=== PATIENT | male | born 1985 | race Caucasian/White ===

== ENCOUNTER → 2016-09-05 09:53 | Outpatient (CLI) | payer MEDICARE ==
[2016-09-05 10:50] LABS: BASOPHILS 0.3 % (0.0-2.0); EOSINOPHILS 4.2 % (0-7); HEMATOCRIT 41.3 % (42.0-54.0); IMMATURE GRANULOCYTES 0.3 % (0-5); LYMPHOCYTES 25.7 % (15-50); MCHC 31.5 g/dL (31.0-37.0); MCV 79.6 fL (80.0-100.0); MEAN PLATELET VOLUME 9.1 fL (7.4-10.4); MONOCYTES 9.5 % (2-11); PLATELET COUNT 271 10x3/uL (130-400); RBC 5.19 10x6/uL (4.20-6.10); RDW 15.6 % (11.5-14.5); WBC 8.6 10x3/uL (4.8-10.8)
[2016-09-05 11:04] LABS: ALBUMIN 3.1 g/dL (3.4-5.0); ALKALINE PHOSPHATASE 118 U/L (46-116); ALT (SGPT) 49 U/L (10-68); BILIRUBIN - TOTAL 0.43 mg/dL (0.2-1.3); CALC OSMOLALITY 278 mosm/kg (275-300); CALCIUM 8.6 mg/dL (8.5-10.1); CARBON DIOXIDE 28.8 mmol/L (21.0-32.0); CHLORIDE - SERUM 103 mmol/L (98-107); CHOLESTEROL, TOTAL 131 mg/dL (0-200); GLUCOSE 95 mg/dL (74-106); HDL CHOLESTEROL 33 mg/dL (32-96); LDL CHOLESTEROL 80 mg/dL (0-100); LDL-HDL RATIO 2.4 ratio (1.5-3.5); POTASSIUM - SERUM 4.1 mmol/L (3.5-5.1); PROTEIN - SERUM 7.9 g/dL (6.4-8.2); SODIUM 140 mmol/L (136-145); THYROID STIMULATING HORMONE 2.94 uIU/mL (0.36-3.74); TRIGLYCERIDE 94 mg/dL (30-200); UREA NITROGEN 12 mg/dL (7-18); eGFR NON AFRICAN AMERICAN > 90 mL/min (90-120)
== END | disposition home or self-care (01) ==
LOC: D.LAB 09:53
PROVIDERS: Family Medicine
DX: Z00.00 Encounter for general adult medical examination without abnormal findings (principal); I10 Essential (primary) hypertension; E66.01 Morbid (severe) obesity due to excess calories; F31.9 Bipolar disorder, unspecified

== ENCOUNTER 2019-10-12 08:53 | Emergency (ER) | payer MEDICARE ==
[2019-10-12 09:02] VITALS: Ht 175.3 cm
[2019-10-12] MEDS ORDERED: CLINDAMYCIN HC300 MG PO (09:14)
[2019-10-12 09:43] VITALS: BP 135/99
== END 2019-10-12 09:47 | disposition home or self-care (01) ==
LOC: D.ER 08:53
DX: L03.311 Cellulitis of abdominal wall (principal)